=== PATIENT | female | born 1950 | race Caucasian/White ===

== ENCOUNTER 2018-04-29 04:14 | Emergency (ER) | payer MEDICARE ==
[~2018-04-29] VITALS: Ht 165.1 cm; Wt 88.5 kg
[~2018-04-29 04:14] MED LIST: ALENDRONATE SOD70 MG PO; DOXYCYCLINE HYC50 MG PO; LOSARTAN POTASS50 MG PO; METOPROLOL SUCC25 MG PO; NEXIUM40 MG PO; NORTRIPTYLINE H25 MG PO; PRAVASTATIN SOD20 MG PO; SYNTHROID150 MCG PO
[2018-04-29] MEDS ORDERED: CLINDAMYCIN PHOS 600 MG/ 4 ML VIAL IM ONE (04:45)
[2018-04-29 05:15] VITALS: BP 152/90
== END 2018-04-29 05:25 | disposition home or self-care (01) ==
LOC: ER 04:14
DX: L03.011 Cellulitis of right finger (principal); W54.0XXA Bitten by dog, initial encounter; Y92.008 Other place in unspecified non-institutional (private) residence as the place of occurrence of the external cause; I10 Essential (primary) hypertension; E78.5 Hyperlipidemia, unspecified; E03.9 Hypothyroidism, unspecified
CPT/HCPCS: 99282

== ENCOUNTER 2018-06-23 22:14 | Emergency (ER) | payer MEDICARE ==
[~2018-06-23] VITALS: Ht 165.1 cm; Wt 88.5 kg
--- OUTSIDE RECORDS SUMMARY | 2018-06-23 22:18 | XMS REPORT | Continuity of Care Document ---
Author Author [facility] Interface Address Unknown Phone Unavailable Problems Problem Status Onset Date Classification Date Reported Comments Source Medications Medication Details Route Status Patient Instructions Ordering Provider Order Date Source Alendronate Sodium 70 Mg Tablet Weekly Active [facility] Doxycycline Hyclate 50 Mg Capsule Daily Active [facility] Esomeprazole Magnesium (Nexium) 40 Mg Capsule.dr Daily Active [facility] Levothyroxine Sodium (Synthroid) 150 Mcg Tablet Daily Active [facility] Losartan Potassium 50 Mg Tablet Daily [facility] Metoprolol Succinate 25 Mg Tab.er.24h Daily Active [facility] Nortriptyline Hcl 25 Mg Capsule Daily Active [facility] Pravastatin Sodium 20 Mg Tablet Daily Active [facility] Allergies, Adverse Reactions, Alerts Substance Category Reaction Severity Reaction type Status Date Reported Comments Source Penicillin Mild Allergy to Substance Active 04/29/2018 [facility] Aspirin HIVES Intermediate Allergy to Substance Active 04/29/2018 [facility] Cefaclor Unknown Allergy to Substance Active 04/29/2018 [facility] Simvastatin Mild Allergy to Substance Active 04/29/2018 [facility] Immunizations Immunization Date Given Site Status Last Updated Comments Source Results Order Name Results Value Reference Range Date Interpretation Comments Source Vital Signs Vital Sign Value Date Comments Source Encounters Location Location Details Encounter Type Encounter Number Reason For Visit Attending Provider ADM Date DC Date Status Source Departed Emergency Room [id number] YASIR BHAKTA MD 04/29/2018 04/29/2018 [facility] Procedures Procedure Code Date Perfomer Comments Source
[2018-06-23 23:06] LABS: BACTERIA,URINE RARE /HPF; BILIRUBIN,URINE NEGATIVE (NEGATIVE); CLARITY,URINE CLOUDY (CLEAR); COLOR,URINE RED (YELLOW); EPITHELIAL CELLS,URINE FEW /LPF; KETONES,URINE NEGATIVE (NEGATIVE); LEUKOCYTE ESTERASE ,URINE NEGATIVE (NEGATIVE); NITRITE,URINE NEGATIVE (NEGATIVE); PROTEIN,URINE DIPSTICK 3+ (NEGATIVE); RBC,URINE >50 /HPF (0-5); URINE UROBILINOGEN 0.2 mg/dL (0.2 - 1); WBC,URINE (MAN) 0-5 /HPF (0-5)
[2018-06-24 00:27] LABS: BASOPHILS % 0.3 % (0.0-1.0); EOSINOPHILS # (AUTO) 0.1 (0.0-0.4); EOSINOPHILS % 1.6 % (0.0-6.0); HEMATOCRIT 34.8 % (34.2-44.1); HEMOGLOBIN 12.5 g/dL (12.0-16.0); LYMPHOCYTES # (AUTO) 1.2 (1.0-3.2); LYMPHOCYTES % 17.8 % (18.0-39.1); MEAN CORPUSCULAR HEMOGLOBIN 31.9 pg (28-32); MEAN CORPUSCULAR HGB CONC 35.9 g/dL (31-35); MEAN CORPUSCULAR VOLUME 88.8 fL (81-99); MONOCYTES % 14.6 % (4.4-11.3); NEUTROPHILS # (AUTO) 4.5 (2.1-6.9); NEUTROPHILS % 65.4 % (38.7-80.0); PLATELET COUNT 250 x10e3/uL (140-360); RED BLOOD COUNT 3.92 x10e6/uL (3.6-5.1); RED CELL DISTRIBUTION WIDTH 15.4 % (11.7-14.4)
[2018-06-24 00:33] LABS: INR 0.86; PROTHROMBIN TIME 12.5 seconds (11.9-14.5)
[2018-06-24 00:34] LABS: PARTIAL THROMBOPLASTIN TIME 28.6 seconds (23.8-35.5)
[2018-06-24 00:40] LABS: ALBUMIN 3.8 g/dL (3.5-5.0); ALBUMIN/GLOBULIN RATIO 1.3 (0.8-2.0); ANION GAP 15.4 mmol/L (8-16); CALCIUM 9.8 mg/dL (8.4-10.2); CREATININE, SERUM 0.94 mg/dL (0.57-1.11); POTASSIUM 3.4 mmol/L (3.5-5.1)
[2018-06-24] MEDS ORDERED: SODIUM CHLORIDE 0.9% 250ML 250 ML ONE (01:09)
[2018-06-24] MEDS ORDERED: IOPAMIDOL 370 MG/ML 200 ML INFUS..BTL INJ ONE (01:09)
[2018-06-24] MEDS ORDERED: SODIUM CHLORIDE 0.9% 1000ML 1,000 ML IV SCH (01:15)
--- NOTE | 2018-06-24 03:47 | Diagnostic Imaging Report ---
EXAM: CT ABDOMEN/PELVIS WOW DATE: 06/24/2018 12:00 AM INDICATION: Hematuria COMPARISON: None TECHNIQUE: The abdomen and pelvis were scanned using a multidetector helical scanner. Coronal and sagittal reformations were obtained. Hematuria protocol with CT of the abdomen and pelvis before and after IV contrast using split bolus technique. CT low dose techniques were utilized, as applicable. IV Contrast: 100 ml Isovue 300/370 FINDINGS: LOWER THORAX: No consolidations LIVER/BILIARY: Hepatic steatosis with 1.2 cm enhancing lesion at the dome with suggestion of peripheral puddling for example on sagittal image 63. Additional about 1 cm hyperenhancing lesions for example on image 15, 30, 33, favor flash hemangiomas. GALLBLADDER: Surgically absent SPLEEN: Unremarkable PANCREAS: Unremarkable ADRENALS: No nodules KIDNEYS: No renal stones. No suspicious renal masses. Nonopacification of the left distal ureter. No hydronephrosis or filling defect in the visualized collecting system. GI TRACT: Postsurgical changes with enteroenteric and colorectal anastomosis intact. Scattered diverticula. Appendix is not clearly seen. VESSELS: Mild atherosclerotic changes PERITONEUM/RETROPERITONEUM: No free air or fluid LYMPH NODES: No lymphadenopathy REPRODUCTIVE ORGANS/BLADDER: There is focal asymmetric thickening of the posterior lateral bladder wall best seen on image 151. This is just above the UVJ. Hysterectomy. BONES: No suspicious bone lesions. IMPRESSION: Focal left posterior lateral bladder wall thickening most suspicious for transitional cell carcinoma. Recommend direct visualization. No other explanation for hematuria. Signed by: Dr Tiffanie Simon MD on 06/24/2018 3:44 AM
[2018-06-27] MEDS ORDERED: VITAMIN B12-FO1 EACH PO (12:54)
[2018-06-27] MEDS ORDERED: LEVOTHYROXINE112 MCG PO (12:54)
[2018-06-27] MEDS ORDERED: VITAMIN D32000 UNI1 PO (12:54)
== END 2018-06-24 04:51 | disposition home or self-care (01) ==
LOC: ER 22:14
DX: R31.0 Gross hematuria (principal); I10 Essential (primary) hypertension; E03.9 Hypothyroidism, unspecified
CPT/HCPCS: 36415; 74178; 80053; 81001; 85025; 85610; 85730; 99284; J7030; J7050; Q9967

== ENCOUNTER 2018-11-15 10:00 | Outpatient (RCR) | payer MEDICARE ==
[~2018-11-15 10:00] MED LIST changes: +LEVOTHYROXINE112 MCG PO; +VITAMIN B12-FO1 EACH PO; +VITAMIN D32000 UNI1 PO
== END 2018-11-17 ==
LOC: PT 10:00
PROVIDERS: ATTEND Specialist
DX: M17.11 Unilateral primary osteoarthritis, right knee (principal)

== ENCOUNTER 2018-11-25 08:59 | Outpatient (RCR) | payer MEDICARE | END 2018-12-18 | LOC: PT 08:59 | PROVIDERS: ATTEND Specialist | DX: S33.5XXA Sprain of ligaments of lumbar spine, initial encounter (principal); M17.11 Unilateral primary osteoarthritis, right knee ==

== ENCOUNTER 2018-12-12 12:55 | Outpatient (RCR) | payer MEDICARE | END 2018-12-18 | LOC: PT 12:55 | PROVIDERS: ATTEND Specialist | DX: S33.5XXA Sprain of ligaments of lumbar spine, initial encounter (principal); M54.5 Low back pain; M62.81 Muscle weakness (generalized) ==

== ENCOUNTER 2019-01-17 09:00 | Outpatient (RCR) | payer MEDICARE | END 2019-01-18 | LOC: PT 09:00 | PROVIDERS: ATTEND Specialist | DX: S33.5XXA Sprain of ligaments of lumbar spine, initial encounter (principal); M54.5 Low back pain; M62.81 Muscle weakness (generalized) ==

== ENCOUNTER 2019-01-24 08:45 | Outpatient (RCR) | payer MEDICARE | END 2019-02-17 | LOC: PT 08:45 | PROVIDERS: ATTEND Specialist | DX: S33.5XXA Sprain of ligaments of lumbar spine, initial encounter (principal) ==